=== PATIENT | female | born 1980 | race Hispanic/Latino ===

== ENCOUNTER 2024-06-19 21:33 | Emergency (ER) | payer OTHER ==
[~2024-06-19] VITALS: Ht 157.5 cm; Wt 77.1 kg
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
[2024-06-20 00:13] VITALS: BP 116/52; PULSE 74; RESP 12; TEMP 97; O2SAT 98
--- NOTE | 2024-06-20 00:28 | HMCIMG ---
FOREARM 2VWS RT HISTORY: Pain COMPARISON: None TECHNIQUE: 2 images of right forearm were obtained. FINDINGS: There is no acute displaced fracture or dislocation. IMPRESSION: 1. Findings as described above.
--- NOTE | 2024-06-20 00:33 | HMCIMG ---
WRIST COMP 3+VWS RT HISTORY: Pain COMPARISON: None TECHNIQUE: 3 images of right wrist were obtained. FINDINGS: Radiocarpal joint space narrowing is seen. There is no acute displaced fracture or dislocation. Degenerative changes are seen. IMPRESSION: 1. Findings as described above.
--- NOTE | 2024-06-20 00:34 | HMCIMG ---
HAND 3+VWS RT HISTORY: Pain COMPARISON: None TECHNIQUE: 3 images of right hand were obtained FINDINGS: Radiocarpal joint space narrowing and interphalangeal joint space narrowing are seen. There is no acute displaced fracture or dislocation. Degenerative changes are seen. IMPRESSION: 1. Findings as described above.
== END 2024-06-20 00:14 | disposition home or self-care (01) ==
LOC: EDH 21:33
DX: M79.631 Pain in right forearm (principal); G89.29 Other chronic pain; M79.641 Pain in right hand; F41.9 Anxiety disorder, unspecified
CPT/HCPCS: 73090; 73110; 73130; 99284